=== PATIENT | female | born 1990 | race Hispanic/Latino ===

== ENCOUNTER 2024-07-01 18:54 | Emergency (ER) | payer MEDICAID ==
[~2024-07-01] VITALS: Ht 167.6 cm; Wt 94.8 kg
--- NOTE | 2024-07-01 19:03 | ERN ---
ED Note History of Present Illness Stated Complaint: VAGINAL PROBLEM, Chief Complaint: Vaginal Problems/Bleeding Time Seen by MD: 18:59 Dictation: PATIENT IS A 33-YEAR-OLD FEMALE COMING IN TODAY STATES SHE IS , DISCOVERED BY A HOME TEST SEVERAL DAYS AGO. . NO CARE. SHE STATES HER CHIEF COMPLAINT TONIGHT IS THAT HER LABIA ARE RED IN TENDER. SHE HAS HAD NO CARE AND HAS NO IDEA WHO HER PROSPECTING DRILLER HELPER DOCTOR WE WILL BE. Allergies: Coded Allergies: No Known Allergies (Unverified Allergy, Unknown, 07/01/24) Past Medical History PSYCH History: no pertinent psych hx : 4 Para: 3 RN Note Reviewed/Agreed w/PFSH: Yes Review of System Dictation CONSTITUTIONAL: NEGATIVE EXCEPT FOR HPI HEAD/FACE: NEGATIVE EXCEPT FOR HPI EENT: NEGATIVE EXCEPT FOR HPI RESPIRATORY: NEGATIVE EXCEPT FOR HPI GASTROINTESTINAL/ABDOMINAL: NEGATIVE EXCEPT FOR HPI GENITOURINARY: NEGATIVE EXCEPT FOR HPI TENDER AND ERYTHEMATOUS LABIA MUSCULOSKELETAL: NEGATIVE EXCEPT FOR HPI INTEGUMENTARY: NEGATIVE EXCEPT FOR HPI NEUROLOGICAL/PSYCH: NEGATIVE EXCEPT FOR HPI HEMATOLOGIC/LYMPHATIC: NEGATIVE EXCEPT FOR HPI ALL SYSTEMS NEGATIVE, EXCEPT NOTED ABOVE. 13 POINT REVIEW OF SYSTEMS ASSESSED AND ALL NEGATIVE EXCEPT FOR ABOVE. Initial Vital Sign VS Vital Signs Date Time Temp Pulse Resp B/P (MAP) Pulse Ox O2 Delivery O2 Flow Rate FiO2 07/01/24 19:01 98.1 88 20 120/76 98 Room Air 07/01/24 19:46 0 21 Physical Exam Dictation VITAL SIGNS REVIEWED BRENDA BARROW IN ROOM WITH THE EXAM GENERAL APPEARANCE: ALERT, ORIENTED X 3, NO ACUTE DISTRESS, WELL DEVELOPED, NOURISHED. HEAD AND FACE: NON-TRAUMATIC. EYES: PERRL, PINK CONJUNCTIVAS, EYELID NO TRAUMA, ANTERIOR CHAMBER WITH ARCUS SENILIS. EARS: PINNAS INTACT AND NO SIGNS OF TRAUMA OR ERYTHEMA EAR CANALS CLEAR AND NO DISCHARGE TM NO ERYTHEMA NOSE: NO DISCHARGE, NO BLEEDING. OROPHARYNX: MOUTH NORMAL, TONGUE PINK, PHARYNX CLEAR,NO ERYTHEMA, TONSILS NO EXUDATES, NO ABSCESSES NOTED, MUCOUS MEMBRANE MOIST NECK: SUPPLE, NON-TENDER, NO THYROMEGALY, NO MASSES, NO JVD, NO BRUITS BREAST:DEFERRED CHEST:NO TENDERNESS, NO CREPITUS, NO PARADOXICAL MOVEMENT, NO RETRACTIONS LUNGS:CLEAR, WELL-VENTILATED, SYMMETRIC, NO RALES, NO WHEEZING, NO RHONCHI, NO STRIDOR, GOOD BREATH SOUNDS BILATERALLY HEART: REGULAR RATE, REGULAR RHYTHM, NO MURMUR, NO GALLOPS VASCULAR: NO PERIPHERAL EDEMA, ABDOMEN: SOFT, POSITIVE BOWEL SOUNDS, NONDISTENDED, NO GUARDING, NONTENDER, NO REBOUND, NO MASSES NO HEPATOMEGALY, NO SPLENOMEGALY, NO PEREZ'S SIGN, NO HERNIAS. RECTAL: DEFERRED GENITAL: PATIENT HAS CANDIDIASIS WITH CHEESY DISCHARGE LABIA ERYTHEMATOUS NEUROLOGICAL: NORMAL SPEECH, MOTOR FUNCTION INTACT, SENSORY FUNCTION INTACT MUSCULOSKELETAL: NECK NONTENDER, FULL RANGE OF MOTION, BACK NONTENDER, FULL RANGE OF MOTION, EXTREMITIES: NONTENDER, FULL RANGE OF MOTION SKIN: COLOR PINK, DRY, NO TURGOR, NO RASH, NO LACERATIONS, NO ABRASIONS, NO CONTUSIONS. LYMPHATIC: DEFERRED Results (Laboratory/Radiology) Laboratory/Radiology Laboratory Tests Test 07/01/24 19:44 White Blood Count 9.9 K/uL (4.8-10.8) Red Blood Count 4.61 MIL/uL (4.00-5.50) Hemoglobin 11.0 g/dL (12.0-16.0) L Hematocrit 35.7 % (36-48) L Mean Corpuscular Volume 77.4 fL (79-99) L Mean Corpuscular Hemoglobin 23.9 pg (27.0-33.0) L Mean Corpuscular Hemoglobin Concent 30.8 g/dL (32.0-36.0) L Red Cell Distribution Width 16.6 % (11.0-15.5) H Platelet Count 363 K/uL (130-400) Mean Platelet Volume 11.2 fL (7.5-10.5) H Immature Granulocyte % (Auto) 0.3 % (0-1) Neutrophils (%) (Auto) 75.9 % (40.0-77.0) Lymphocytes (%) (Auto) 15.6 % (21.0-51.0) L Monocytes (%) (Auto) 7.1 % (3.0-13.0) Eosinophils (%) (Auto) 0.6 % (0.0-8.0) Basophils (%) (Auto) 0.5 % (0.0-5.0) Neutrophils # (Auto) 7.5 K/uL (1.8-7.7) Lymphocytes # (Auto) 1.5 K/uL (1.0-4.8) Monocytes # (Auto) 0.7 K/uL (0.1-1.0) Eosinophils # (Auto) 0.06 K/uL (0.00-0.70) Basophils # (Auto) 0.05 K/uL (0.00-0.20) Absolute Immature Granulocyte (auto 0.03 K/uL (0-1) Nucleated Red Blood Cells 0.0 % (0.0-0.19) Serum Test, Qualitative POSITIVE (NEGATIVE) H 2006, ULTRASOUND DEMONSTRATES IUP, EIGHT WEEKS SIX DAYS, HEART TONES 175, NO BLEED Labs Reviewed?: Yes ED Course ED Course Orders Procedure Category Date Status Time Cbc With Differential LAB 07/01/24 In Process 19: Testing, LAB 07/01/24 Complete Serum Hcg 19: Hcg,Quantitative LAB 07/01/24 In Process 19: Us Ob <14 Weeks US 07/01/24 Resulted 19: Type And Screen BBK 07/01/24 In Process 19:01 Vital Signs Date Time Temp Pulse Resp B/P (MAP) Pulse Ox O2 Delivery O2 Flow Rate FiO2 07/01/24 19:46 89 18 134/87 98 Room Air* 0 21 07/01/24 19:01 98.1 88 20 120/76 98 Room Air Medical Decision Making MDM MDM: DIFFERENTIAL DIAGNOSIS: STI/CANDIDIASIS//THREATENED A B/INCOMPLETE A B RATIONALE: TESTS CONSIDERED AND ORDERED SECONDARY TO SHARED DECISION MAKING INCLUDE: ULTRASOUND/LABS PREVIOUS OUTSIDE RECORDS REVIEWED: OLD ER VISITS. REVIEWED RISK OF COMPLICATION AND/OR MORBIDITY OR MORTALITY OF PATIENT MANAGEMENT: NONE MEDICATIONS-PER MEDICATION RECONCILIATION SEE NURSE'S NEED FOR HOSPITALIZATION: PATIENT DOES NOT MEET CRITERIA FOR HOSPITALIZATION. NOTES NO NEED FOR EMERGENCY MAJOR/MINOR SURGERY: NO THERE ARE NO SOCIAL CONCERNS WITH THIS PATIENT. PRESCRIPTION DRUG MANAGEMENT CLOTRIMAZOLE/[id number]-TGLTKEQ VITAMINS/GEIX-DUY-AJXWNLI PRESCRIPTIONS WILL INCLUDE SYMPTOMATIC CARE PATIENT'S PRIOR EXTERNAL MEDICAL RECORDS FROM OTHER ER VISITS WERE REVIEWED BY ME INDICATED. PRIOR TESTING AND RESULTS FROM PREVIOUS VISITS WERE REVIEWED. PRIOR TESTS WERE TAKEN INTO ACCOUNT WITH MEDICAL DECISION MAKING AND RESOURCE UTILIZATION, INDEPENDENT HISTORIAN/HISTORIANS WERE USED TO OBTAIN COMPLETE MEDICAL HISTORY. I INDEPENDENTLY INTERPRETED THE TEST THAT WERE PERFORMED, RESULTS WERE REVIEWED BY ME AND CONSIDERED FINDINGS ON RADIOLOGY IF ORDERED. MEDICAL MANAGEMENT AND EXAMINATION INTERPRETATION DISCUSSIONS WERE HAD BY ME WITH OTHER QUALIFIED HEALTHCARE PROFESSIONALS INDICATED FOR THE PATIENT'S CARE. DX & DISP Disposition: Discharge Departure Impression: Primary Impression: First trimester Additional Impression: Vaginal candidiasis Condition: Stable Assign Patient to: FOLLOW-UP WITH PRIMARY CARE PROVIDER IN 1 TO 2 DAYS. TAKE MEDICATIONS D IRECTED HERE IN THE EMERGENCY ROOM. OKAY TO CONTINUE HOME MEDICATIONS UNLESS OTHERWISE DISCUSSED DURING YOUR VISIT IN THE EMERGENCY ROOM TODAY. RETURN TO YOUR NEAREST EMERGENCY ROOM IF SYMPTOMS WORSEN OR IF THERE IS NO IMPROVEMENT. CALL 911 IF YOU NEED IMMEDIATE ASSISTANCE. TAKE TYLENOL [id number]-[id number] NEEDED AND IF NO CONTRAINDICATIONS ARE PRESENT. INCREASE ORAL HYDRATION. A WOUND CULTURE OR URINE CULTURE WAS ORDERED HERE IN THE EMERGENCY ROOM DEPARTMENT PLEASE FOLLOW-UP WITH PRIMARY CARE PROVIDER AND ADVISE THEM TO GET REPEAT PORTS FROM OUR FACILITY. IF YOU HAD ANY KONG WRAP/SPLINTS THAT WERE APPLIED HERE, PLEASE DO NOT REMOVE THEM UNTIL YOU SEE YOUR PRIMARY CARE OR SPECIALTY. BEGIN VITAMINS/PFVC-MPX-UOSNCWL DAILY. NO ALCOHOL, NO TOBACCO, NO [id number]-[id number] MEDICATIONS EXCEPT TYLENOL UNTIL CLEARED BY YOUR PROSPECTING DRILLER HELPER DOCTOR CALL FOR AN APPOINTMENT. USE CLOTRIMAZOLE DIRECTED Scripts Clotrimazole (Clotrimazole) 1 % Cream.appl 1 CELI VG HS for 7 Days, #45 GM 0 Refills Prov: ED TRUJILLO NP 07/01/24 Referrals: SELF,REFERRAL (PCP) MEGHAN CAPPS MD Time of Disposition: 20:32 I have reviewed the case, and I agree with, Diagnosis and Plan ED TRUJILLO NP Jul 01, 2024 19:03
[2024-07-01 19:56] LABS: BASOPHILS # (AUTO) 0.05 K/uL (0.00-0.20); BASOPHILS % (AUTO) 0.5 % (0.0-5.0); EOSINOPHILS # (AUTO) 0.06 K/uL (0.00-0.70); EOSINOPHILS % (AUTO) 0.6 % (0.0-8.0); HEMATOCRIT 35.7 % (36-48); IMMATURE GRANULOCYTE ABSOLUTE 0.03 K/uL (0-1); LYMPHOCYTES # (AUTO) 1.5 K/uL (1.0-4.8); LYMPHOCYTES % (AUTO) 15.6 % (21.0-51.0); MEAN CORPUSCULAR HEMOGLOBIN 23.9 pg (27.0-33.0); MEAN CORPUSCULAR HGB CONC 30.8 g/dL (32.0-36.0); MEAN CORPUSCULAR VOLUME 77.4 fL (79-99); MONOCYTES # (AUTO) 0.7 K/uL (0.1-1.0); MONOCYTES % (AUTO) 7.1 % (3.0-13.0); NEUTROPHILS # (AUTO) 7.5 K/uL (1.8-7.7); NEUTROPHILS % (AUTO) 75.9 % (40.0-77.0); PLATELET COUNT (AUTO) 363 K/uL (130-400); RED BLOOD CELL COUNT(AUTO) 4.61 MIL/uL (4.00-5.50); RED CELL DISTRIBUTION WIDTH 16.6 % (11.0-15.5); WHITE BLOOD COUNT (AUTO) 9.9 K/uL (4.8-10.8)
--- NOTE | 2024-07-01 20:27 | HMCIMG ---
US OB <14 WEEKS HISTORY: VAGINAL BLEEDING TECHNIQUE: Real-time pelvic ultrasound was performed. FINDINGS: Uterus measures 13.7 cm. heart rate 175 bpm's and gestational age is 8 weeks and 6 days +/- 5 days. Right ovary measures 2.8 cm and left ovary measures 3.2 cm, both with vascular flow. There is a left ovarian cyst measuring 1.9 cm. IMPRESSION: Single live IUP, as described. Left ovarian cyst measuring 1.9 cm.
[2024-07-01 20:30] VITALS: BP 109/61; PULSE 89; RESP 18; TEMP 98.1; O2SAT 98
[2024-07-01] MEDS ORDERED: CLOT45CR62 VG (20:34)
== END 2024-07-01 20:46 | disposition home or self-care (01) ==
LOC: EDH 18:54
DX: O98.811 Other maternal infectious and parasitic diseases complicating pregnancy, first trimester (principal); B37.31 Acute candidiasis of vulva and vagina; O34.81 Maternal care for other abnormalities of pelvic organs, first trimester; N83.202 Unspecified ovarian cyst, left side; R10.2 Pelvic and perineal pain; Z3A.00 Weeks of gestation of pregnancy not specified
CPT/HCPCS: 36415; 76801; 84702; 84703; 85025; 86850; 86900; 86901; 99284

== ENCOUNTER 2024-10-05 20:58 | Emergency (ER) | payer MEDICAID ==
[~2024-10-05] VITALS: Ht 167.6 cm; Wt 104.3 kg
[~2024-10-05 20:58] MED LIST: CLOT45CR62 VG
--- NOTE | 2024-10-05 21:10 | ERN ---
ED Note History of Present Illness Stated Complaint: FLU SYM Chief Complaint: Flu Symptoms Time Seen by MD: 21:00 Dictation: PATIENT IS A 33-YEAR-OLD FEMALE, COMING IN TODAY WITH COMPLAINTS OF FLU-LIKE SYMPTOMS TO INCLUDE SORE THROAT WITH PAINFUL SWALLOWING SINUS CONGESTION, COUGH WITH GREEN-YELLOW PHLEGM FOR THE LAST 3-4 DAYS. SHE ALSO STATES SHE IS HAVING RIGHT EAR PAIN AND DECREASED HEARING. SHE HAS HAD LOW-GRADE FEVER AND CHILLS. NO LOSS OF TASTE OR SMELL NO NAUSEA VOMITING NO DIARRHEA. SHE STATES SHE IS21 WEEKS , PATIENT HAD DR. MEDINA. STATES SHE SAW DR. ABDALLA/FRIDAY WHO SWABBED HER FOR COVID-19, TOLD HER SHE WAS NEGATIVE AND T OLD HER TO TAKE [id number] MUCINEX ROBITUSSIN. CURRENTLY SHE DENIES ANY CONTRACTIONS NO VAGINAL BLEEDING NO BACK PAIN Allergies: Coded Allergies: No Known Allergies (Unverified Allergy, Unknown, 07/01/24) Home Meds Active Scripts Clotrimazole (Clotrimazole) 1 % Cream.appl, 1 CELI VG HS for 7 Days, #45 GM 0 Refills Prov:ED TRUJILLO TAPPING MACHINE OPERATOR AUTOMATIC 07/01/24 Past Medical History Past Medical History: No Pertinent History Surgical History: : 4 Para: 3 Aborts: 2 RN Note Reviewed/Agreed w/PFSH: Yes Review of System Dictation CONSTITUTIONAL: NEGATIVE EXCEPT FOR HPI FEVER CHILLS HEAD/FACE: NEGATIVE EXCEPT FOR HPI EENT: NEGATIVE EXCEPT FOR HPI SINUS CONGESTION WITH SORE THROAT RESPIRATORY: NEGATIVE EXCEPT FOR HPI PRODUCTIVE COUGH WITH GREEN-YELLOW PHLEGM GASTROINTESTINAL/ABDOMINAL: NEGATIVE EXCEPT FOR HPI GENITOURINARY: NEGATIVE EXCEPT FOR HPI MUSCULOSKELETAL: NEGATIVE EXCEPT FOR HPI INTEGUMENTARY: NEGATIVE EXCEPT FOR HPI NEUROLOGICAL/PSYCH: NEGATIVE EXCEPT FOR HPI HEMATOLOGIC/LYMPHATIC: NEGATIVE EXCEPT FOR HPI ALL SYSTEMS NEGATIVE, EXCEPT NOTED ABOVE. 13 POINT REVIEW OF SYSTEMS ASSESSED AND ALL NEGATIVE EXCEPT FOR ABOVE. Initial Vital Sign VS Vital Signs Date Time Temp Pulse Resp B/P (MAP) Pulse Ox O2 Delivery O2 Flow Rate FiO2 10/05/24 21:00 97.5 81 18 115/74 98 Physical Exam Dictation VITAL SIGNS REVIEWED GENERAL APPEARANCE: ALERT, ORIENTED X 3, MILD ACUTE DISTRESS, WELL DEVELOPED, NOURISHED. HEAD AND FACE: NON-TRAUMATIC. EYES: PERRL, PINK CONJUNCTIVAS, EYELID NO TRAUMA, ANTERIOR CHAMBER WITH ARCUS SENILIS. EARS: PINNAS INTACT AND NO SIGNS OF TRAUMA OR ERYTHEMA NO MASTOID TENDERNESS, BILATERAL CANALS INTACT. POSITIVE RIGHT OTITIS MEDIA WITH EFFUSION NOSE: NO DISCHARGE, NO BLEEDING. OROPHARYNX: MOUTH NORMAL, TONGUE PINK, PHARYNX CLEAR, MODERATE PHARYNGEAL ERYTHEMA ERYTHEMA, TONSILS NO EXUDATES, NO ABSCESSES NOTED, MUCOUS MEMBRANE MOIST UVULA MIDLINE, VOICE IS CLEAR NECK: SUPPLE, NON-TENDER, NO THYROMEGALY, NO MASSES, NO JVD, NO BRUITS BREAST:DEFERRED CHEST:NO TENDERNESS, NO CREPITUS, NO PARADOXICAL MOVEMENT, NO RETRACTIONS LUNGS:CLEAR, WELL-VENTILATED, SYMMETRIC, NO RALES, NO WHEEZING, NO RHONCHI, NO STRIDOR, GOOD BREATH SOUNDS BILATERALLY HEART: REGULAR RATE, REGULAR RHYTHM, NO MURMUR, NO GALLOPS VASCULAR: NO PERIPHERAL EDEMA, ABDOMEN: SOFT, POSITIVE BOWEL SOUNDS, NONDISTENDED, NO GUARDING, NONTENDER, NO REBOUND, NO MASSES NO HEPATOMEGALY, NO SPLENOMEGALY, NO PEREZ'S SIGN, NO HERNIAS. RECTAL: DEFERRED GENITAL: DEFERRED NEUROLOGICAL: NORMAL SPEECH, MOTOR FUNCTION INTACT, SENSORY FUNCTION INTACT MUSCULOSKELETAL: NECK NONTENDER, FULL RANGE OF MOTION, BACK NONTENDER, FULL RANGE OF MOTION, EXTREMITIES: NONTENDER, FULL RANGE OF MOTION SKIN: COLOR PINK, DRY, NO TURGOR, NO RASH, NO LACERATIONS, NO ABRASIONS, NO CONTUSIONS. LYMPHATIC: DEFERRED Results (Laboratory/Radiology) Laboratory/Radiology Laboratory Tests Test 10/05/24 21:07 Influenza Type A Antigen Negative For Type A Influenza Type B Antigen Negative For Type B SARS-CoV-2 Antigen (Rapid) PRESUMPTIVE NEGATIVE Group A Streptococcus Rapid negative (NEGATIVE) Labs Reviewed?: Yes ED Course ED Course Orders Procedure Category Date Status Time Azithromycin PHA 10/05/24 Complete (Zithromax) 21:30 Acetaminophen 500mg PHA 10/05/24 Complete Tab (Tylenol 500mg T 21:30 Dexamethasone 4mg/Ml PHA 10/05/24 Complete 1ml Vial (Dexametha 21:30 Covid19 (Sars Antigen LAB 10/05/24 Complete Rapid) 21:06 Influenza Type A & B, LAB 10/05/24 Complete Rapid 21:06 Rapid (Group A Strep) LAB 10/05/24 Complete 21:06 *Nursing CPOE 10/05/24 Transmitted Communication: 21:06 Current Medications Medications (Trade) Dose Ordered Sig/Jose Route PRN Reason Start Time Stop Time Status Last Admin Dose Admin Acetaminophen (TYLenol 500MG TAB) 1,000 mg ONCE ONCE PO 10/05/24 21:30 10/05/24 21:31 DC 10/05/24 21:19 Azithromycin (Zithromax) 500 mg ONCE ONCE PO 10/05/24 21:30 10/05/24 21:31 DC 10/05/24 21:21 Dexamethasone Sodium Phosphate (dexaMETHasone 4MG/ML 1ML VIAL) 8 mg ONCE ONCE IM 10/05/24 21:30 10/05/24 21:31 DC 10/05/24 21:21 Vital Signs Date Time Temp Pulse Resp B/P (MAP) Pulse Ox O2 Delivery O2 Flow Rate FiO2 10/05/24 21:19 98.8 10/05/24 21:00 97.5 81 18 115/74 98 2200/swabs for flu COVID and strep are negative patient will be treated for acute bacterial bronchitis cheilitis. She will be instructed to take Delsym or Robitussin etun-hii-scgaivp for cough. Follow up with her member services coordinator doctor Medical Decision Making MDM Medical discharge making based on swabs for flu COVID and strep. All swabs negative Patient will be treated with azithromycin for acute bacterial bronchitis Patient instructed to take Delsym droj-iui-jiizjsk as needed for cough See her member services coordinator doctor DX & DISP Disposition: Discharge Departure Impression: Primary Impression: Acute bacterial bronchitis Additional Impressions: and not yet delivered in second trimester, Cough Condition: Stable Scripts Albuterol Sulfate (Ventolin Hfa/Proventil Hfa/Proair Hfa) 90 Mcg Puff 2 PUFF IH Q4H for WHEEZING, #1 INHALER 0 Refills Prov: ED TRUJILLO TAPPING MACHINE OPERATOR AUTOMATIC 10/05/24 Azithromycin (Zithromax Tri-Jose) 500 Mg Tablet 500 MG PO DAILY for 5 Days, #5 TAB Prov: ED TRUJILLO TAPPING MACHINE OPERATOR AUTOMATIC 10/05/24 Additional Instructions: Follow-up with primary care provider in 1 to 2 days. Take medications as directed here in the emergency room. Okay to continue home medications unless otherwise discussed during your visit in the emergency room today. Return to your nearest emergency room if symptoms worsen or if there is no improvement. Call 911 if you need immediate assistance. Take Tylenol or Motrin tzyx-tso-udzycmg as needed and if no contraindications are present. Increase oral hydration. A wound culture or urine culture was ordered here in the emergency room department please follow-up with primary care provider and advise them to get repeat ports from our facility. If you had any Pradeep wrap/splints that were applied here, please do not remove them until you see your primary care or specialty. Take antibiotics as directed until gone., suggest Robitussin/zzue-ngv-phgencm every 4-6 hours as needed for cough. Use albuterol inhaler every 4-6 hours as needed for shortness a breath. Follow up with the your member services coordinator doctor Referrals: SELF,REFERRAL (PCP) Time of Disposition: 22:02 I have reviewed the case, and I agree with, Diagnosis and Plan ED TRUJILLO NP Oct 05, 2024 21:10
[2024-10-05] MEDS: acetaMINOPHEN 500 MG TABLET PO ONE (21:19)
[2024-10-05] MEDS: AZITHROMYCIN 250 MG TABLET PO ONE (21:21)
[2024-10-05] MEDS: dexaMETHasone SOD PHOSPHATE 4 MG/ML 1ML VIAL IM ONE (21:21)
[2024-10-05 21:31] LABS: RAPID GROUP A STREP negative (NEGATIVE)
[2024-10-05 21:43] LABS: INFLUENZA TYPE A Negative For Type A (NEGATIVE); INFLUENZA TYPE B Negative For Type B (NEGATIVE)
[2024-10-05 21:47] LABS: COVID19 (SARS ANTIGEN RAPID) PRESUMPTIVE NEGATIVE (NEGATIVE)
[2024-10-05] MEDS ORDERED: AZIT500T2 PO (22:03)
[2024-10-05] MEDS ORDERED: ALBUHFA IH (22:03)
--- NOTE | 2024-10-05 22:17 | NUR ---
HEART TONES AT RATE OF 172.
[2024-10-05 22:18] VITALS: BP 116/78; PULSE 80; RESP 18; TEMP 98.2; TEMP 99; O2SAT 98
== END 2024-10-05 22:21 | disposition home or self-care (01) ==
LOC: EDH 20:58
DX: O99.512 Diseases of the respiratory system complicating pregnancy, second trimester (principal); J20.8 Acute bronchitis due to other specified organisms; R05.9 Cough, unspecified; Z3A.22 22 weeks gestation of pregnancy; Z20.822 Contact with and (suspected) exposure to COVID-19
CPT/HCPCS: 99283; 87426; 87880; 87804 ×2; 96372; J1100